=== PATIENT | female | born 1960 ===

== ENCOUNTER 2021-05-20 06:48 | Day surgery (SDC) | payer OTHER ==
[~2021-05-20 06:48] MED LIST: ADULT LOW DOSE81 M1 PO; ATACAND32 MG PO; ATORVASTATIN CA10 MG PO; SYNTHROID125 MCG PO; VENOFLASH
== END 2021-05-20 11:40 | disposition home or self-care (01) ==
LOC: CIR.AMB 06:48
PROVIDERS: ATTEND Orthopaedic Surgery Hand Surgery
DX: G56.02 Carpal tunnel syndrome, left upper limb (principal); Z20.822 Contact with and (suspected) exposure to COVID-19